=== PATIENT | female | born 1995 | race Two or more races ===

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

== ENCOUNTER 2017-05-11 18:29 | Emergency (ER) | payer MEDICAID, OTHER ==
[~2017-05-11] VITALS: Ht 162.6 cm; Wt 56.7 kg
[~2017-05-11 18:29] MED LIST: ALBUTEROL SULF8.5 GM INH; LEVOFLOXACIN500 MG ORAL; PREDNISONE10 M2 PO; PREDNISONE20 MG ORAL
[2017-05-11] MEDS ORDERED: Tylenol #3 tab (300mg/30mg) ORAL ONE (19:00)
--- NOTE | 2017-05-11 19:00 | Emergency Room Report ---
History of Present Illness General Chief Complaint: Pain Source: Patient, Medical Record Present Illness HPI 22 YO Female presents to the ED c/o rash on anterior left side of abdomen x 1.5 hours, itching and 7/10 in severity burning sensation. reports pmhx of asthma intermittently, but no known allergies. Denies fevers, chills, recent illness, recent travel, ill contacts. Patient denies joint pain, denies history of chickenpox. Denies lesions/rashes elsewhere on the body. Denies new medications or body washes or creams. Denies swelling of the lips, tongue , throat or airway. Denies wheezing, or shortness of breath. Denies recent travel, recent illness or ill contacts. denies blisters, oral lesions, or sloughing of the skin. Denies cardiac hx, CP, Palpitations, LOC, AMS, dizziness, Changes in Vision, Sensation, paresthesias, or a sudden severe headache. Allergies: Coded Allergies: No Known Allergies (Unverified , 10/09/16) Patient History Past Medical History: see triage record Past Surgical History: none Pertinent Family History: none Last Menstrual Period: 04/12/17 Now: No Immunizations: UTD Reviewed Nursing Documentation: PMH: Agreed, PSxH: Agreed Nursing Documentation-PMH Past Medical History: No History, Except For Hx Cardiac Problems: No Hx Asthma: Yes Hx Cancer: No Hx Gastrointestinal Problems: No Hx Neurological Problems: No Review of Systems All Other Systems: negative except mentioned in HPI Physical Exam Vital Signs Date Time Temp Pulse Resp B/P (MAP) Pulse Ox O2 Delivery O2 Flow Rate FiO2 05/11/17 18:39 98.2 67 14 127/83 98 Room Air Sp02 EP Interpretation: reviewed, normal General Appearance: no apparent distress, alert, GCS 15, non-toxic Head: normocephalic, atraumatic Eyes: bilateral eye normal inspection, bilateral eye PERRL ENT: hearing grossly normal, normal pharynx, no angioedema, normal voice, other - no swelling of the lips or tongue Neck: full range of motion Respiratory: chest non-tender, lungs clear, normal breath sounds, no wheezing, speaking full sentences Cardiovascular #1: regular rate, rhythm Gastrointestinal: normal bowel sounds, non tender, soft, no guarding, no rebound Musculoskeletal: back normal, gait/station normal, normal range of motion, non- tender Neurologic: alert, oriented x3, responsive, motor strength/tone normal, sensory intact, speech normal Psychiatric: judgement/insight normal, memory normal, mood/affect normal Skin: normal color, warm/dry, well hydrated, rash - insect bite on the left anterior chest. induration of 0.3cm with ttp to superficial palpation, no bony ttp, blanching erythema noted, increased temperature to palpation, no blisters , no vesicles, no palpable fluctuance. Lymphatic: no adenopathy Medical Decision Making PA Attestation Dr. varela is my supervising Physician whom patient management has been discussed with. Diagnostic Impression: Primary Impression: Rash and other nonspecific skin eruption ER Course Pt. presents to the ED c/o rash on anterior left side of abdomen x 1.5 hours, itching and 7/10 in severity burning sensation. Ddx considered but are not limited to cellulitis, scabies, shingles, varicella, dermatitis, urticaria, eczema, tinea, viral exanthem, SJS Vital signs: are WNL, pt. is afebrile H&PE are most consistent with localized reaction to possible insect bite on the left anterior chest. induration of 0.3cm with ttp to superficial palpation, no bony ttp, blanching erythema noted, increased temperature to palpation, no blisters , no vesicles, no palpable fluctuance. ORDERS: none required at this time, the diagnosis is clinical ED INTERVENTIONS: - Benadryl PO -Tylenol 3 PO Pt given ED return instructions with worsening or new symptoms, otherwise conservative treatment at home with PMD follow up in 3-5 days. DISCHARGE: At this time pt. is stable for d/c to home. Will provide printed patient care instructions, and any necessary prescriptions. Care plan and follow up instructions have been discussed with the patient prior to discharge. Last Vital Signs Date Time Temp Pulse Resp B/P (MAP) Pulse Ox O2 Delivery O2 Flow Rate FiO2 05/11/17 18:39 98.2 67 14 127/83 98 Room Air Disposition: HOME, SELF-CARE Condition: Stable Scripts Lidocaine (LC-5) 45 Gm Cream..g. 1 GM TP TID for For Pain, #45 GM Prov: Mercy Mattson.Hai 05/11/17 Acetaminophen* (TYLENOL EXTRA STRENGTH*) 500 Mg Tablet 500 MG ORAL Q6H, #20 TAB 0 Refills Prov: Mercy Mattson 05/11/17 Hydrocortisone (Hydrocortisone Cream 2.5%) Y Cream.appl 1 APPLIC TP BID, #20.3 GM Prov: Mercy Mattson 05/11/17 Diphenhydramine Hcl (BENADRYL ALLERGY) 25 Mg Tablet 25 MG PO Q6HR, #20 TAB Prov: eMrcy Mattson 05/11/17 Departure Forms: Return to Work Return to Work Date: May 14, 2017 Return to Full Activity: May 14, 2017 Patient Instructions: Rash, [id number] Additional Instructions: Take medications as directed. Follow up with a Primary Care Provider in 3-5 days, even if your symptoms have resolved. --Please review list of primary care clinics, if you do not already have a primary care provider Return sooner to ED if new symptoms occur, or current symptoms become worse. Do not drink alcohol, drive, or operate heavy machinery while taking Benadryl as this may cause drowsiness. - Please note that this Emergency Department Report was dictated using [employer] technology software, occasionally this can lead to erroneous entry secondary to interpretation by the dictation equipment. Mercy Mattson May 11, 2017 19:00
[2017-05-11] MEDS ORDERED: TYLENOL EXTRA500 MG ORAL (19:04)
[2017-05-11] MEDS ORDERED: LC-545 GM TP (19:04)
[2017-05-11] MEDS ORDERED: HYDROCORTISONE30 G2 TP (19:04)
[2017-05-11] MEDS ORDERED: BENADRYL ALLERG25 M1 PO (19:04)
[2017-05-11 19:15] VITALS: BP 127/83
[2017-05-11 19:22] VITALS: BP 127/83
== END 2017-05-11 19:22 | disposition home or self-care (01) ==
LOC: EMR 19:14
DX: R21 Rash and other nonspecific skin eruption (principal)
CPT/HCPCS: 99284